=== PATIENT | male | born 1945 | race Caucasian/White ===

== ENCOUNTER 2016-07-19 09:50 | Outpatient (CLI) | payer MEDICARE, OTHER ==
[2015-09-22 23:41] VITALS: BP 180/79
[2016-07-19 16:11] LABS: TOTAL PROTEIN 6.9 g/dL (6.0-8.5)
== END 2016-07-19 10:00 ==
LOC: LAB 09:50
PROVIDERS: ATTEND Family Medicine
DX: E11.9 Type 2 diabetes mellitus without complications (principal); N18.3 Chronic kidney disease, stage 3 (moderate); I10 Essential (primary) hypertension
CPT/HCPCS: 36415; 80053; 80061; 82043; 83036

== ENCOUNTER 2016-12-18 15:28 | Outpatient (CLI) | payer MEDICARE, OTHER ==
[2015-09-22 23:41] VITALS: BP 180/79
== END 2016-12-18 15:30 ==
LOC: NEPHRO 15:28
PROVIDERS: ATTEND Internal Medicine Nephrology
DX: I10 Essential (primary) hypertension (principal); E11.9 Type 2 diabetes mellitus without complications; N18.9 Chronic kidney disease, unspecified
CPT/HCPCS: G0463

== ENCOUNTER 2016-12-18 16:06 | Outpatient (CLI) | payer MEDICARE, OTHER ==
[2015-09-22 23:41] VITALS: BP 180/79
[2016-12-18 16:36] LABS: APPEARANCE,URINE Clear (CLEAR); COLOR,URINE Yellow (YELLOW); OCCULT BLOOD,URINE 1+ (NEGATIVE); PH URINE 5.5 (5.0 - 8.0); UROBILINOGEN URINE 0.2 Eu (0.2-1.0)
[2016-12-18 16:37] LABS: BASOPHILS % 0.7 (0.0-1.5); EOSINOPHILS % 2.9 % (0.0-6.8); MEAN CORPUSCULAR VOLUME 96.6 fl (80.0-100.0); MONOCYTES % 6.3 % (0.0-11.0); NEUTROPHILS # 4.1 # k/uL (1.4-7.7)
[2016-12-18 16:45] LABS: AMORPHOUS SEDIMENT,UR FEW (NEGATIVE)
[2016-12-18 16:57] LABS: eGFR (African) 25; eGFR (Non-African) 20
[2016-12-19 00:11] LABS: PROTEIN mg/dL 235 mg/dL
== END 2016-12-18 16:07 ==
LOC: LAB 16:06
PROVIDERS: ATTEND Internal Medicine Nephrology
DX: I10 Essential (primary) hypertension (principal); E11.9 Type 2 diabetes mellitus without complications; N18.9 Chronic kidney disease, unspecified
CPT/HCPCS: 36415; 80053; 81002; 82570; 83036; 83970; 84156; 85025; G0463

== ENCOUNTER 2016-12-19 09:53 | Outpatient (CLI) | payer MEDICARE, OTHER ==
[2015-09-22 23:41] VITALS: BP 180/79
--- NOTE | 2016-12-20 06:56 | Diagnostic Imaging Report ---
GIOVANY OBRIEN~ [facility] [address] [facility] [address] [address] ~ ~ ~ ~ Report Submission Date: Dec 19, 2016 11:38:01 AM CDT Patient ~ Study Name: YOEL MCKENNA ~ Date: Dec 19, 2016 10:25:26 AM CDT ~ Modality Type: CR Gender: F ~ Description: PELVIS : [birth year] ~ Institution: [facility] Physician: GIOVANY OBRIEN ~ ~ ~ ~ Examination: Plain film hip History: Hip discomfort Comparison exams: None provided Findings: 2 views of the hip demonstrate normal cortical margins. No fracture no dislocation. Mild superior acetabular spurring. No soft tissue abnormality. Impression: Mild acetabular spurring. No acute osseous abnormality. ~ Electronically signed on Dec 19, 2016 11:38:01 AM CDT by: Minesh VASQUEZ
== END 2016-12-19 09:54 ==
LOC: RAD 09:53
PROVIDERS: ATTEND Internal Medicine Nephrology
DX: N18.9 Chronic kidney disease, unspecified (principal)
CPT/HCPCS: 76770

== ENCOUNTER 2018-02-13 15:51 | Emergency (ER) | payer MEDICARE, OTHER ==
[2018-02-13 16:40] VITALS: BP 184/96
--- NOTE | 2018-02-13 16:59 | ED Physician Documentation ---
Flank Pain - HISTORIAN Historian: patient - HPI Stated Complaint: L Flank pain Chief Complaint: Flank Pain Additional Information: 1 1/2 days left flank pain that has been continuous, but not severe until he coughed earlier today. [place] like something ripped and pain has been more severe since. Can't describe it, except severe and waxes and wanes. Radiates to left abdomen a bit. Tells nurse it takes a long time to empty his bladder. Never had this pain before. Took one tylenol with codeine this am with some relief. HX pancreatitis and smokes 2-3 PPD. - ROS CONST: no problems - SOCIAL HX Smoking History: cigarettes (2-3 PPD) - FAMILY HX Family History: no significant history - PAST HX Past History: pancreatitis, other (a fib, NIDDM) - VITAL SIGNS Vital Signs: Vital Signs Temp Pulse Resp BP Pulse Ox 96.6 F L 118 H 15 184/96 93 02/13/18 16:00 02/13/18 16:00 02/13/18 16:00 02/13/18 16:00 02/13/18 16:00 - REVIEWED ASSESSMENTS Nursing Assessment Reviewed: Yes Vitals Reviewed: Yes Progress - Progress Progress: Report Submission Date: Feb 13, 2018 5:30:19 PM CDT Patient Study Name: JEREMIAS CONTRERAS Date: Feb 13, 2018 5:03:51 PM CDT Modality Type: CT\SR Gender: M Description: CT ABD PELVIS W/O CO : 43 Institution: [facility] Physician: FAWAD NUNEZ - [place] CT ABDOMEN AND PELVIS WITHOUT CONTRAST HISTORY: Left flank pain for 2 days TECHNIQUE: Helically acquired images were obtained from the hemidiaphragms to the pelvic floor without IV contrast using a stone protocol. FINDINGS: On these images without IV contrast, which limits solid organ evaluation, the liver, spleen, gallbladder and pancreas are normal. Mild adenomatous findings of the bilateral adrenal glands are present. Vascular calcifications of the renal arteries are present bilaterally. No definite renal stones are noted in the midst of the vascular calcifications. There is mild bilateral perinephric fat stranding which may relate to senescence or chronic inflammation. There is no hydronephrosis. The ureters are normal in caliber. There are no ureteral stones. There is aortoiliac atherosclerosis without aneurysm. The appendix is normal. There is an accessory splen. There are no findings to suggest diverticulitis. There are few diverticula along the descending sigmoid colon. The bladder, seminal vesicles prostate gland are within normal. Lung bases are clear. There is moderate dextroscoliosis of the upper to mid lumbar spine. Extensive findings of degenerative disc disease are present at L1/2, L2/3 and L3/4. Impression: Advanced degenerative disc disease and dextroscoliosis involving the upper lumbar spine. No acute intra-abdominal or intrapelvic abnormality. No source for left flank pain is noted. Electronically signed on Feb 13, 2018 5:30:19 PM CDT by: [id number], discussed with Dr. Myers. Will hydrate and home if pt feels ok. Otherwise admit to obs. Cut lasix dose in half. See Dr. Myers next week. 181, feels much better. 1 L NS nearly infused. ED Results Lab/Radiology - Orders Orders: ED Orders Category Date Time Status Place IV Lock 1T Care 02/13/18 16:[address] ABD & PELVIS W/O CON Stat Exams 02/13/18 Ordered CBC/PLATELET/DIFF Routine Lab 02/13/18 Ordered CMP Routine Lab 02/13/18 Ordered LIPASE Stat Lab 02/13/18 Ordered URINALYSIS Routine Lab 02/13/18 Ordered HYDROmorphone HCL/PF [Dilaudid] Med 02/13/18 16:51 Once 1 mg IVP NOW ONE Ondansetron HCl/Pf [Zofran 4 mg/2 ml] Med 02/13/18 16:51 Once 4 mg IVP NOW ONE Abdominal Pain Physical Exam - Physical Exam General Appearance: alert, moderate distress EENT: eye inspection normal, ENT inspection normal, pharynx normal NECK: normal inspection, supple CVS: reg rate & rhythm, heart sounds normal (distant) ABDOMEN: soft, normal bowel sounds, tenderness (left mid) BACK: normal inspection, no CVA tenderness SKIN: warm/dry, normal color EXTREMITIES: normal range of motion, no evidence of injury, no edema, other (skin of feet intact) NEURO: CN's nml as tested, motor nml, sensation nml, cognition normal Vital Signs: Vital Signs Temp Pulse Resp BP Pulse Ox 96.6 F L 118 H 15 184/96 93 02/13/18 16:00 02/13/18 16:00 02/13/18 16:00 02/13/18 16:00 02/13/18 16:00 Discharge Clincal Impression: Myalgia, Dehydration Prescriptions: Cyclobenzaprine HCl [Flexeril] 10 mg PO HS #10 tablet Referrals: Juan Antonio Myers MD [Primary Care Provider] - 2 Days Condition: Good Disposition: 01 HOME, SELF-CARE Decision to Admit: NO Decision Time: 18:15
[2018-02-13] MEDS: HYDROmorphone HCL/PF 2 MG/ML DISP.SYRIN IVP ONE (17:00)
[2018-02-13] MEDS: ONDANSETRON HCL/PF 4 MG/ 2ML VIAL IVP ONE (17:00)
[2018-02-13 17:05] LABS: BASOPHILS % 0.7 (0.0-1.5); EOSINOPHILS % 1.5 % (0.0-6.8); MEAN CORPUSCULAR HEMOGLOBIN 31.4 pg (28.0-34.0); MONOCYTES % 6.1 % (0.0-11.0); NEUTROPHILS # 4.2 # k/uL (1.4-7.7)
[2018-02-13 17:14] LABS: APPEARANCE,URINE CLEAR (CLEAR); COLOR,URINE YELLOW (YELLOW); OCCULT BLOOD,URINE 2+ (NEGATIVE); UROBILINOGEN URINE 0.2 Eu (0.2-1.0)
[2018-02-13] MEDS: 0.9 % SODIUM CHLORIDE 1,000 ML IV ONE ×2 (17:40→18:04)
[2018-02-13] MEDS: CYCLOBENZAPRINE HCL 5 MG TABLET ONE (18:15)
[2018-02-13] MEDS: CYCLOBENZAPRINE HCL 5 MG TABLET PO ONE (18:15)
--- NOTE | 2018-02-13 18:53 | Diagnostic Imaging Report ---
FAWAD NUNEZ [facility] [address] [facility] [address] [place] [address]. [id number] Report Submission Date: Feb 13, 2018 5:30:19 PM CDT Patient Study Name: JEREMIAS CONTRERAS Date: Feb 13, 2018 5:03:51 PM CDT Modality Type: CT\SR Gender: M Description: CT ABD PELVIS W/O CO : 44 Institution: [facility] Physician: FAWAD NUNEZ CT ABDOMEN AND PELVIS WITHOUT CONTRAST HISTORY: Left flank pain for 2 days TECHNIQUE: Helically acquired images were obtained from the hemidiaphragms to the pelvic floor without IV contrast using a stone protocol. FINDINGS: On these images without IV contrast, which limits solid organ evaluation, the liver, spleen, gallbladder and pancreas are normal. Mild adenomatous findings of the bilateral adrenal glands are present. Vascular calcifications of the renal arteries are present bilaterally. No definite renal stones are noted in the midst of the vascular calcifications. There is mild bilateral perinephric fat stranding which may relate to senescence or chronic inflammation. There is no hydronephrosis. The ureters are normal in caliber. There are no ureteral stones. There is aortoiliac atherosclerosis without aneurysm. The appendix is normal. There is an accessory splen. There are no findings to suggest diverticulitis. There are few diverticula along the descending sigmoid colon. The bladder, seminal vesicles prostate gland are within normal. Lung bases are clear. There is moderate dextroscoliosis of the upper to mid lumbar spine. Extensive findings of degenerative disc disease are present at L1/2, L2/3 and L3/4. Impression: Advanced degenerative disc disease and dextroscoliosis involving the upper lumbar spine. No acute intra-abdominal or intrapelvic abnormality. No source for left flank pain is noted. Electronically signed on Feb 13, 2018 5:30:19 PM CDT by: Gaye VASQUEZ
== END 2018-02-13 18:30 | disposition home or self-care (01) ==
LOC: ED 15:51
DX: E86.0 Dehydration (principal); M79.1 Myalgia
CPT/HCPCS: 74176; 80053; 81002; 83690; 85025; J1170; J2405; J7030; 96360; 96374; 96375; 99284; S1016

== ENCOUNTER 2018-02-25 09:57 | Outpatient (CLI) | payer MEDICARE, OTHER ==
--- NOTE | 2018-02-25 16:32 | Diagnostic Imaging Report ---
CHAPARRO SHIELDS [facility] [address] [address] Report Submission Date: Feb 25, 2018 2:28:45 PM CDT Patient Study Name: JEREMIAS CONTRERAS Date: Feb 25, 2018 10:26:44 AM CDT Modality Type: US Gender: M Description: US PELVIC LIMITED : 43 Institution: [facility] Physician: CHAPARRO SHIELDS Ultrasound pelvis limited History: Urinary retention Transverse and longitudinal images were obtained through the bladder. Bladder configuration is normal. Prevoid bladder volume is 400 mL and postvoid bladder volume is 170 mL. Therefore, there is a moderate postvoid residual. Impression: Prevoid bladder volume 400 mL. Postvoid 170 mL. Moderate postvoid residual. Electronically signed on Feb 25, 2018 2:28:45 PM CDT by: Gaye VASQUEZ
== END 2018-02-25 10:00 ==
LOC: RAD 09:57
PROVIDERS: ATTEND Family Medicine
DX: N40.1 Benign prostatic hyperplasia with lower urinary tract symptoms (principal); Z12.5 Encounter for screening for malignant neoplasm of prostate; E11.9 Type 2 diabetes mellitus without complications
CPT/HCPCS: 36415; 76857; 83036; G0103

== ENCOUNTER → 2018-04-17 | Outpatient (CLI) | payer MEDICARE, OTHER ==
--- NOTE | 2018-04-17 14:47 | Diagnostic Imaging Report ---
GERARDO AMBRIZ [facility] [address] [facility] [address] Report Submission Date: Apr 17, 2018 2:22:09 PM CDT Patient Study Name: JEREMIAS CONTRERAS Date: Apr 17, 2018 11:51:29 AM CDT Modality Type: DX Gender: M Description: SPINE : 43 Institution: [facility] Physician: GERARDO AMBRIZ Cervical spine History: Neck pain AP, odontoid, lateral and swimmer's radiographs of the cervical spine were obtained which demonstrate Spangler type rods from C2 through the upper thoracic spine. The screws at the C2 level bilaterally are fractured. There is spurring at the anterior inferior endplates of C2 and C3. The C4 and C5 vertebral bodies are fused. There is severe disc space narrowing at C5/6. Assessment of the inferior-most cervical spine is limited. Alignment is grossly normal. No prevertebral soft tissue swelling is noted. The dens is intact. The lateral masses of C1 and C2 are aligned. Impression: Spangler type rods are present extending from C2 through the upper thoracic spine. The screws bilaterally at C2 are fractured. Fusion of C4 and C5 with severe disc space narrowing at C5/6. Assessment of the lower cervical spine is limited. Electronically signed on Apr 17, 2018 2:22:09 PM CDT by: Gaye VASQUEZ
== END ==
LOC: RAD 11:47
PROVIDERS: ATTEND Physician Assistant
DX: M54.2 Cervicalgia (principal)
CPT/HCPCS: 72040

== ENCOUNTER 2018-04-22 12:41 | Outpatient (CLI) | payer MEDICARE, OTHER ==
--- NOTE | 2018-04-22 18:12 | Diagnostic Imaging Report ---
GERARDO AMBRIZ [facility] [address] [facility] [address] [place], [place]. [address] Report Submission Date: Apr 22, 2018 5:59:11 PM CDT Patient Study Name: JEREMIAS CONTRERAS Date: Apr 22, 2018 12:58:54 PM CDT Modality Type: CT\OT\SR Gender: M Description: CT CHEST W/O CONT CA S : 43 Institution: [facility] Physician: GERARDO AMBRIZ CT chest without contrast low-dose protocol. History: 73-year-old male with a greater than 100 pack-year history of smoking current smoker presents for lung cancer screening evaluation. Technique: Transaxial computed tomographic images of the chest were obtained without contrast according to low-dose protocol. Findings: Lung specific: No suspicious pulmonary nodule. Other findings: There is bronchial wall thickening bilaterally with bilateral lower lobe reticular nodular infiltrates consistent with associated bronchopneumonia/bronchiolitis. The heart size is normal. There is mild coronary artery and aortic atherosclerosis present. No adenopathy is present. Limited views of the upper abdomen are normal. Impression: 1. No pulmonary nodule present. 2. Bronchial wall thickening consistent with bronchitis with associated bilateral lower lobe tree-in-bud reticular infiltrate, left greater than right suggesting associated bronchiolitis and bronchopneumonia. Clinical correlation recommended. 3. Lung rads category 1: No suspicious pulmonary nodule. Follow-up low-dose CT in 12 months is recommended. Electronically signed on Apr 22, 2018 5:59:11 PM CDT by: Doc VASQUEZ
== END 2018-04-22 12:43 ==
LOC: RAD 12:41
PROVIDERS: ATTEND Family Medicine
DX: Z12.2 Encounter for screening for malignant neoplasm of respiratory organs (principal); F17.200 Nicotine dependence, unspecified, uncomplicated
CPT/HCPCS: G0297

== ENCOUNTER 2018-09-02 13:02 | Outpatient (CLI) | payer OTHER ==
--- NOTE | 2018-09-02 17:00 | Diagnostic Imaging Report ---
CHAPARRO SHIELDS [facility] [address] [facility] [address] Report Submission Date: Sep 02, 2018 4:27:28 PM CDT Patient Study Name: JEREMIAS CONTRERAS Date: Sep 02, 2018 1:10:19 PM CDT Modality Type: US Gender: M Description: US YELENA 1-2 LVL BILAT LIMITED : 43 Institution: [facility] Physician: CHAPARRO SHIELDS Examination: Ultrasound arterial History: PVD Comparison exams: None available Findings: Sonographic evaluation of the lower extremity arterial system from the groin to the distal extremities bilaterally demonstrates diminished waveforms. Right ankle/brachial index of 0.28. Left ankle/brachial index of 0.33 Impression: Severely reduced ABIs bilaterally indicating significant reduction to hemodynamic flow. Recommend the obtaining lower extremity arterial runoff examination to further evaluate. Electronically signed on Sep 02, 2018 4:27:28 PM CDT by: Minesh VASQUEZ
== END 2018-09-02 13:03 ==
LOC: RAD 13:02
PROVIDERS: ATTEND Family Medicine
DX: I73.9 Peripheral vascular disease, unspecified (principal)
CPT/HCPCS: 93922

== ENCOUNTER 2019-02-10 14:29 | Outpatient (CLI) | payer OTHER | END 2019-02-10 14:31 | LOC: LAB 14:29 | PROVIDERS: ATTEND Family Medicine | DX: N18.5 Chronic kidney disease, stage 5 (principal) | CPT/HCPCS: 36415; 80069; 82728; 83540; 83550 ==